=== PATIENT | female | born 1980 | race Caucasian/White ===

== ENCOUNTER 2020-07-30 15:48 | Emergency (ER) | payer OTHER ==
[~2020-07-30] VITALS: Ht 165.1 cm; Wt 76.9 kg
[2020-07-30 15:57] VITALS: BP 151/88
--- NOTE | 2020-07-30 16:13 | PHYS DOC ---
Past History Past Medical History: No Pertinent History, Other (URMILA ORLANDO APRN) Past Surgical History: No Surgical History (URMILA ORLANDO APRN) Alcohol Use: None (URMIAL ORALNDO APRN) General Adult EDM: Chief Complaint: LACERATION/AVULSION HPI: HPI: Patient is a 40-year-old female who presents with laceration to left index finger. Patient states that she was repairing a cake when she cut her finger. Bleeding is controlled. Tetanus shot is up-to-date. (URMILA ORLANDO APRN) Review of Systems: Review of Systems: Constitutional: Denies fever or chills Eyes: Denies change in visual acuity HENT: Denies nasal congestion or sore throat Respiratory: Denies cough or shortness of breath Cardiovascular: Denies chest pain or edema GI: Denies abdominal pain, nausea, vomiting, bloody stools or diarrhea : Denies dysuria Musculoskeletal: Denies back pain or joint pain Integument: Laceration to right index finger Neurologic: Denies headache, focal weakness or sensory changes Endocrine: Denies polyuria or polydipsia Lymphatic: Denies swollen glands Psychiatric: Denies depression or anxiety (URMILA ORLANDO APRN) Allergies: Allergies: Allergies Coded Allergies Type Severity Reaction Last Updated Verified No Known Drug Allergies 07/30/20 No (URMILA ORLANDO APRN) Physical Exam: PE: Constitutional: Well developed, well nourished, no acute distress, non-toxic appearance. [] HENT: Normocephalic, atraumatic, bilateral external ears normal, oropharynx moist, no oral exudates, nose normal. [] Eyes: PERRLA, EOMI, conjunctiva normal, no discharge. [] Neck: Normal range of motion, no tenderness, supple, no stridor. [] Cardiovascular:Heart rate regular rhythm, no murmur [] Lungs & Thorax: Bilateral breath sounds clear to auscultation [] Abdomen: Bowel sounds normal, soft, no tenderness, no masses, no pulsatile masses. [] Skin: 0.5CM laceration to outer left index finger Back: No tenderness, no CVA tenderness. [] Extremities: No tenderness, no cyanosis, no clubbing, ROM intact, no edema. [] Neurologic: Alert and oriented X 3, normal motor function, normal sensory function, no focal deficits noted. [] Psychologic: Affect normal, judgement normal, mood normal. [] (URMILA ORLANDO APRN) Current Patient Data: Vital Signs: Vital Signs Date Time Temp Pulse Resp B/P (MAP) Pulse Ox O2 Delivery O2 Flow Rate FiO2 07/30/20 15:59 97.9 89 16 151/88 (109) 98 Room Air (URMILA ORLANDO APRN) EKG: EKG: [] (URMILA ORLANDO APRN) Radiology/Procedures: Radiology/Procedures: [] (URMILA ORLANDO APRN) Heart Score: Risk Factors: Risk Factors: DM, Current or recent (<one month) smoker, HTN, HLP, family history of CAD, obesity. Risk Scores: Score 0 - 3: 2.5% MACE over next 6 weeks - Discharge Home Score 4 - 6: 20.3% MACE over next 6 weeks - Admit for Clinical Observation Score 7 - 10: 72.7% MACE over next 6 weeks - Early Invasive Strategies (URMILA ORLANDO APRN) Course & Med Decision Making: Course & Med Decision Making Pertinent Labs and Imaging studies reviewed. (See chart for details) Patient is a 40-year-old female who presents with laceration to left index finger. Patient states that she was repairing a cake when she cut her finger. Bleeding is controlled. Tetanus shot is up-to-date. Wound irrigated with normal saline. Glue and Steri-Strips applied to laceration. Bandage applied and patient informed not to remove for 7 days. Bl eeding is controlled. Tetanus is up-to-date. [] (URMILA ORLANDO APRN) Dragon Disclaimer: Dragon Disclaimer: This electronic medical record was generated, in whole or in part, using a voice recognition dictation system. (URMILA ORLANDO APRN) Departure Departure: Impression: Primary Impression: Laceration Disposition: 01 DC HOME SELF CARE/HOMELESS Condition: GOOD Referrals: PCP,UNKNOWN (PCP) Patient Instructions: Fingertip Laceration, Laceration Care, Adult, [id number] Additional Instructions: You were seen in emergency room for a laceration to your index finger. Please keep wound clean and dry. Keep bandage on for 7 days. Please return to the emergency room with worsening symptoms or concerns. EMERGENCY DEPARTMENT GENERAL DISCHARGE INSTRUCTIONS Thank you for coming to [facility] (ED) today and trusting us with you care. We trust that you had a positivie experience in our Emergency Department. If you wish to speak to the department management, you may call the director at [phone]. YOUR FOLLOW UP INSTRUCTIONS ARE FOLLOWS: 1. Do you have a private Doctor? If you do not have a private doctor, please ask for a resource list of physicians or clinics that may be able to assist you with follow up care. 2. The Emergency Physician has interpreted your x-rays. The X-Ray specialist will also review them. If there is a change in the findings, you will be notified in 48 hours when at all possible. 3. A lab test or culture has been done, your results will be reviewed and you will be notified if you need a change in treatment. ADDITIONAL INSTRUCTIONS AND INFORMATION: 1. Your care today has been supervised by a physician who is specially trained in emergency care. Many problems require more than one evaluation for a complete diagnosis and treatment. We recommend that you schedule your follow up appointment as recommended to ensure complete treatment of you illness or injury. If you are unable to obtain follow up care and continue to have a problem, or if your condition worsens, we recommend that you return to the ED. 2. We are not able to safely determine your condition over the phone nor are we able to give sound medical advice over the phone. For these safety reasons, if you call for medical advice we will ask you to come to the ED for further evaluation. 3. If you have any questions regarding these discharge instructions please call the ED at [phone]. SAFETY INFORMATION: In the interest of safety, wellness, and injury prevention; we encourage you to wear your sealbelt, if you smoke; quite smoking, and we encourage family to use a protective helmet for bicycling and other sporting events that present an increased risk for head injury. IF YOUR SYMPTOMS WORSEN OR NEW SYMPTOMS DEVELOP, OR YOU HAVE CONCERNS ABOUT YOUR CONDITION; OR IF YOUR CONDITION WORSENS WHILE YOU ARE WAITING FOR YOUR FOLLOW UP APPOINTMENT; EITHER CONTACT YOUR PRIMARY CARE DOCTOR, THE PHYSICIAN WHOSE NAME AND NUMBER YOU WERE GIVEN, OR RETURN TO THE ED IMMEDIATELY. Attending Signature Attending Signature I have reviewed the PA/AREA SAFETY MANAGER's note and plan of care. I was available for consultation as needed during the patient's visit in the emergency department. I agree with the clinical impression, plan, and disposition. (DOMITILA DAY DO) URMILA ORLANDO APRN Jul 30, 2020 16:13 DOMITILA DAY DO Jul 31, 2020 07:59
== END 2020-07-30 16:40 | disposition home or self-care (01) ==
LOC: ER 15:48
DX: S61.211A Laceration without foreign body of left index finger without damage to nail, initial encounter (principal); W26.8XXA Contact with other sharp object(s), not elsewhere classified, initial encounter; Y93.89 Activity, other specified; Y92.89 Other specified places as the place of occurrence of the external cause; Y99.8 Other external cause status
CPT/HCPCS: 12001; 99282